=== PATIENT | male | born 1955 | race Caucasian/White ===

== ENCOUNTER → 2016-08-31 | Outpatient (CLI) | payer MEDICARE, OTHER ==
[2016-08-31 11:09] LABS: CHLORIDE,CL 103 mmol/L (98-110); SODIUM,NA 136 mmol/L (136-146)
== END ==
LOC: MW.CHFP 10:25
PROVIDERS: ATTEND Student in an Organized Health Care Education/Training Program
DX: E11.9 Type 2 diabetes mellitus without complications (principal); I10 Essential (primary) hypertension; E78.5 Hyperlipidemia, unspecified; E11.65 Type 2 diabetes mellitus with hyperglycemia; I25.10 Atherosclerotic heart disease of native coronary artery without angina pectoris
CPT/HCPCS: 36415; 80053; 80061; 82044; 83036; 99214

== ENCOUNTER → 2016-09-13 | Outpatient (CLI) | payer MEDICARE | LOC: MW.CHFP 08:00 | PROVIDERS: ATTEND Student in an Organized Health Care Education/Training Program | DX: NODX10 (principal) ==

== ENCOUNTER 2017-01-04 19:17 | Emergency (ER) | payer MEDICARE ==
[2017-01-04] MEDS ORDERED: Sodium Chloride 0.9% 10 ML Syringe FLUSH PRN (19:19)
[2017-01-04] MEDS ORDERED: Sodium Chloride 0.9% 2.5 ML Syringe FLUSH PRN (19:19)
[2017-01-04] MEDS ORDERED: Albuterol/Ipratropium 3.0-0.5 MG/3 ML Neb Soln NEB ONE (19:19)
--- NOTE | 2017-01-04 19:23 | EDM.PDOC ---
ED HPI GENERAL MEDICAL PROBLEM - General Chief Complaint: Respiratory Problem Stated Complaint: TROUBLE BREATHING Time Seen by Provider: 01/04/17 19:18 - History of Present Illness INITIAL COMMENTS - FREE TEXT/NARRATIVE: HISTORY AND PHYSICAL: History of present illness: The patient is a 61-year-old male who follows in our family cracked his clinic with Dr. Gross and has a history of [place] CVA--with no stated deficits--- insulin requiring diabetes hypertension and hypercholesterolemia and presented to the ED with a 10 day history of shortness of breath. The patient said that he has been doctoring [id number] medications for a cold for the last 10 days initially having phlegm the cough and gurgling when he was breathing was worse at night. Use [id number] cough medications and did not see his provider for care. He says the phlegm has now stopped but he still feels the gurgling and it is worse at nighttime. He says the shortness of breath is on and off the last 10 days and when he lays down to go to sleep it seems to be worse. He has no chest pain no abdominal pain no fevers nausea or vomiting. He has no runny nose or sore throat. He has no leg pain or swelling. The patient states he has a history of tobacco use but has quit and was never told that he had COPD or asthma. He also states that he had an inhalation injury when he was younger at work and he doesn't know if his lungs are damaged because of that. Review of systems: As per history of present illness and below otherwise all systems reviewed and negative. Past medical history: As per history of present illness and as reviewed below otherwise noncontributory. Surgical history: As per history of present illness and as reviewed below otherwise noncontributory. Social history: No reported history of drug or alcohol abuse. Family history: As per history of present illness and as reviewed below otherwise noncontributory. Physical exam: Gen.: Well-developed overweight man who is speaking clearly and easily in the ED without breathlessness or hoarseness. He is afebrile and his O2 sat on room air is 93%. The patient is very talkative on my initial evaluation. HEENT: Atraumatic, normocephalic, pupils reactive, negative for conjunctival pallor or scleral icterus, mucous membranes moist, throat clear, neck supple, nontender, trachea midline. Lungs: Clear to auscultation with diminished breath sounds in the bases but no worker breathing or wheezing or sensory muscle use,, breath sounds equal bilaterally, chest nontender. Heart: S1S2, regular, negative for clicks, rubs, or JVD. Abdomen: Soft, nondistended, nontender. The patient is a very large abdomen but there is no rebound guarding or tenderness. Negative for masses or hepatosplenomegaly. Negative for costovertebral tenderness. Pelvis: Stable nontender. Genitourinary: Deferred. Rectal: Deferred. Extremities: Atraumatic, negative for cords or calf pain. Neurovascular unremarkable. There is no pedal edema or leg asymmetry Neuro: Awake, alert, oriented. Cranial nerves II through XII unremarkable. Cerebellum unremarkable. Motor and sensory unremarkable throughout. Exam nonfocal. Skin: There is no overt rashes or lesions and turgor is normal and there is no diaphoresis Diagnostics: EKG chest x-ray CBC CMP BNP INR lactic acid troponin Therapeutics: IV O2 monitor live salgado I discussed with patient the testing care results as well as with family member at bedside and have offered the patient admission to the hospital for further care and evaluation due to his comorbidities and he declines at this time. He would prefer to be discharged and follow-up with his provider in the clinic. He says that he does feel better after the DuoNeb and I will give him an inhaler with a spacer for home. He says he feels like the gurgling that he is experiencing is more in his throat and then he is able to cough or clear it and the inhaler helped. I will give him a course of antibiotics for home and treat this as a bronchitis. I did stress to him reasons to return to the ED and need for follow-up in the clinic. Impression: Dyspnea, bronchitis Definitive disposition and diagnosis as appropriate pending reevaluation and review of above. - Related Data Allergies Allergy/AdvReac Type Severity Reaction Status Date / Time No Known Allergies Allergy Verified 10/30/13 07:47 Home Meds: Home Meds Aspirin 325 mg PO DAILY 10/30/13 [History] Cinnamon Bark [Cinnamon] 500 mg PO DAILY 10/30/13 [History] Ezetimibe [Zetia] 10 mg PO DAILY 10/30/13 [History] Glimepiride [Amaryl] 2 mg PO BID 10/30/13 [History] Insulin Detemir [Levemir Flexpen] 20 unit SQ BID 10/30/13 [History] Metoprolol Tartrate [Lopressor] 50 mg PO 10/30/13 [History] [place]-3/DHA/Epa/Fish Oil [Fish Oil] 500 mg PO 10/30/13 [History] atorvaSTATin [Lipitor] 80 mg PO BEDTIME 10/30/13 [History] metFORMIN [Glucophage] 1,000 mg PO BIDM 10/30/13 [History] Social & Family History - Tobacco Use Years of Tobacco use: 40 - Alcohol Use Days Per Week of Alcohol Use: 0 - Recreational Drug Use Recreational Drug Use: No ED ROS GENERAL - Review of Systems Review Of Systems: ROS reveals no pertinent complaints other than HPI. ED EXAM, GENERAL - Physical Exam Exam: See Below (See dictation) Course - Vital Signs Last Recorded V/S: Last Vital Signs Temp 36.3 C 01/04/17 19:17 Pulse 62 01/04/17 19:17 Resp 22 H 01/04/17 19:17 BP 162/125 H 01/04/17 19:17 Pulse Ox 93 L 01/04/17 19:17 - Orders/Labs/Meds Orders: Active Orders 24 hr Category Date Time Status Blood Glucose Check, Bedside [RC] ONETIME Care 01/04/17 19:18 Active Cardiac Monitoring [RC] . DIRECTED Care 01/04/17 19:18 Active EKG Documentation Completion [RC] STAT Care 01/04/17 19:18 Active Oxygen Therapy, ED [RC] ASDIRECTED Care 01/04/17 19:18 Active Pulse Oximetry [RC] ASDIRECTED Care 01/04/17 19:18 Active RT Aerosol Therapy [RC] ASDIRECTED Care 01/04/17 19:19 Active Chest 2V [CR] Stat Exams 01/04/17 19:19 Taken Sodium Chloride 0.9% [Saline Flush] Med 01/04/17 19:19 Active 10 ml FLUSH ASDIRECTED PRN Sodium Chloride 0.9% [Saline Flush] Med 01/04/17 19:19 Active 2.5 ml FLUSH ASDIRECTED PRN Saline Lock Insert [OM.PC] Stat Oth 01/04/17 19:18 Ordered Medication Orders Sodium Chloride (Saline Flush) 10 ml FLUSH ASDIRECTED PRN PRN Reason: Keep Vein Open Sodium Chloride (Saline Flush) 2.5 ml FLUSH ASDIRECTED PRN PRN Reason: Keep Vein Open Labs: Laboratory Tests 01/04/17 01/04/17 01/04/17 Range/Units 19:30 19:30 19:30 WBC 9.17 (4.0-11.0) K/uL RBC 5.08 (4.50-5.90) M/uL Hgb 14.9 (13.0-17.0) g/dL Hct 43.2 (38.0-50.0) % MCV 85.0 (80.0-98.0) fL MCH 29.3 (27.0-32.0) pg MCHC 34.5 (31.0-37.0) g/dL RDW Std Deviation 42.2 (28.0-62.0) fl RDW Coeff of Funmi 14 (11.0-15.0) % Plt Count 194 (150-400) K/uL MPV 11.10 (7.40-12.00) fL Neut % (Auto) 64.3 (48.0-80.0) % Lymph % (Auto) 21.8 (16.0-40.0) % [place] % (Auto) 11.3 (0.0-15.0) % Eos % (Auto) 2.2 (0.0-7.0) % Baso % (Auto) 0.4 (0.0-1.5) % Neut # (Auto) 5.9 H (1.4-5.7) K/uL Lymph # (Auto) 2.0 (0.6-2.4) K/uL [place] # (Auto) 1.0 H (0.0-0.8) K/uL Eos # (Auto) 0.2 (0.0-0.7) K/uL Baso # (Auto) 0.0 (0.0-0.1) K/uL Nucleated RBC % 0.0 /100WBC Nucleated RBCs # 0 K/uL INR (0.86-1.11) Lactate 2.1 H (0.20-2.00) mmol/L Sodium 137 (136-146) mmol/L Potassium 4.7 (3.5-5.1) mmol/L Chloride 102 (98-110) mmol/L Carbon Dioxide 24 (21-31) mmol/L BUN 14 (6.0-23.0) mg/dL Creatinine 0.9 (0.6-1.5) mg/dL Est Cr Clr Drug Dosing 89.48 mL/min Estimated GFR (MDRD) > 60.0 ml/min Glucose 184 H (60-110) mg/dL Calcium 8.9 (8.8-10.8) mg/dL Total Bilirubin 0.6 (0.1-1.5) mg/dL AST 18 (5-40) IU/L ALT 14 (8-54) IU/L Alkaline Phosphatase 78 (40-150) Troponin I (0.0-0.29) NG/ML B-Natriuretic Peptide (<100) PG/ML Total Protein 6.7 (6.0-8.0) g/dL Albumin 3.5 (3.4-4.8) g/dL Globulin 3.2 (2.0-3.5) g/dL Albumin/Globulin Ratio 1.1 L (1.3-2.8) 01/04/17 01/04/17 01/04/17 Range/Units 19:30 19:30 20:15 WBC (4.0-11.0) K/uL RBC (4.50-5.90) M/uL Hgb (13.0-17.0) g/dL Hct (38.0-50.0) % MCV (80.0-98.0) fL MCH (27.0-32.0) pg MCHC (31.0-37.0) g/dL RDW Std Deviation (28.0-62.0) fl RDW Coeff of Funmi (11.0-15.0) % Plt Count (150-400) K/uL MPV (7.40-12.00) fL Neut % (Auto) (48.0-80.0) % Lymph % (Auto) (16.0-40.0) % [place] % (Auto) (0.0-15.0) % Eos % (Auto) (0.0-7.0) % Baso % (Auto) (0.0-1.5) % Neut # (Auto) (1.4-5.7) K/uL Lymph # (Auto) (0.6-2.4) K/uL [place] # (Auto) (0.0-0.8) K/uL Eos # (Auto) (0.0-0.7) K/uL Baso # (Auto) (0.0-0.1) K/uL Nucleated RBC % /100WBC Nucleated RBCs # K/uL INR 0.98 (0.86-1.11) Lactate (0.20-2.00) mmol/L Sodium (136-146) mmol/L Potassium (3.5-5.1) mmol/L Chloride (98-110) mmol/L Carbon Dioxide (21-31) mmol/L BUN (6.0-23.0) mg/dL Creatinine (0.6-1.5) mg/dL Est Cr Clr Drug Dosing mL/min Estimated GFR (MDRD) ml/min Glucose (60-110) mg/dL Calcium (8.8-10.8) mg/dL Total Bilirubin (0.1-1.5) mg/dL AST (5-40) IU/L ALT (8-54) IU/L Alkaline Phosphatase (40-150) Troponin I < 0.10 (0.0-0.29) NG/ML B-Natriuretic Peptide 263 H (<100) PG/ML Total Protein (6.0-8.0) g/dL Albumin (3.4-4.8) g/dL Globulin (2.0-3.5) g/dL Albumin/Globulin Ratio (1.3-2.8) Meds: Medications Generic Name Dose Route Start Last Admin Trade Name Freq PRN Reason Stop Dose Admin Sodium Chloride 10 ml 01/04/17 19:19 Saline Flush FLUSH ASDIRECTED PRN Keep Vein Open Sodium Chloride 2.5 ml 01/04/17 19:19 Saline Flush FLUSH ASDIRECTED PRN Keep Vein Open Discontinued Medications Generic Name Dose Route Start Last Admin Trade Name Freq PRN Reason Stop Dose Admin Albuterol/Ipratropium 3 ml 01/04/17 19:19 01/04/17 19:30 Duoneb 3.0-0.5 Mg/3 Ml NEB 01/04/17 19:20 3 ml ONETIME ONE Administration Departure - Departure Time of Disposition: 20:34 Disposition: Home, Self-Care 01 Condition: Good Clinical Impression: Bronchitis Dyspnea Qualifiers: Dyspnea type: unspecified Qualified Code(s): R06.00 - Dyspnea, unspecified - Discharge Information Forms: ED Department Discharge Additional Instructions: The following information is given to patients seen in the emergency department who are being discharged to home. This information is to outline your options for follow-up care. We provide all patients seen in our emergency department with a follow-up referral. The need for follow-up, as well as the timing and circumstances, are variable depending upon the specifics of your emergency department visit. If you don't have a primary care physician on staff, we will provide you with a referral. We always advise you to contact your personal physician following an emergency department visit to inform them of the circumstance of the visit and for follow-up with them and/or the need for any referrals to a consulting specialist. The emergency department will also refer you to a specialist when appropriate. This referral assures that you have the opportunity for followup care with a specialist. All of these measure are taken in an effort to provide you with optimal care, which includes your followup. Under all circumstances we always encourage you to contact your private physician who remains a resource for coordinating your care. When calling for followup care, please make the office aware that this follow-up is from your recent emergency room visit. If for any reason you are refused follow-up, please contact the [facility] emergency department at and ask to speak to the emergency department charge nurse. [facility] Primary care- [place] [address] Please use medications as prescribed and rest. Please call and follow-up with your provider in our clinic, Dr. Gross, in the next few days. Return to ER as needed and as we discussed. - My Orders Last 24 Hours: My Active Orders 01/04/17 19:18 Blood Glucose Check, Bedside [RC] ONETIME Cardiac Monitoring [RC] . DIRECTED EKG Documentation Completion [RC] STAT Oxygen Therapy, ED [RC] ASDIRECTED Pulse Oximetry [RC] ASDIRECTED Saline Lock Insert [OM.PC] Stat 01/04/17 19:19 RT Aerosol Therapy [RC] ASDIRECTED Chest 2V [CR] Stat Sodium Chloride 0.9% [Saline Flush] 10 ml FLUSH ASDIRECTED PRN Sodium Chloride 0.9% [Saline Flush] 2.5 ml FLUSH ASDIRECTED PRN - Assessment/Plan Last 24 Hours: My Active Orders 01/04/17 19:18 Blood Glucose Check, Bedside [RC] ONETIME Cardiac Monitoring [RC] . DIRECTED EKG Documentation Completion [RC] STAT Oxygen Therapy, ED [RC] ASDIRECTED Pulse Oximetry [RC] ASDIRECTED Saline Lock Insert [OM.PC] Stat 01/04/17 19:19 RT Aerosol Therapy [RC] ASDIRECTED Chest 2V [CR] Stat Sodium Chloride 0.9% [Saline Flush] 10 ml FLUSH ASDIRECTED PRN Sodium Chloride 0.9% [Saline Flush] 2.5 ml FLUSH ASDIRECTED PRN
[2017-01-04 20:05] LABS: CHLORIDE,CL 102 mmol/L (98-110); SODIUM,NA 137 mmol/L (136-146)
[2017-01-04 21:17] VITALS: BP 176/89
--- NOTE | 2017-01-05 18:05 | CR ---
EXAM DATE: 01/04/17 PATIENT'S AGE: 61 Patient: DEV CAZARES Facility: [place], [place] Site . Site : 1955 Study: XRay Chest [id number] 8:05:18 PM Ordering Physician: Darrell Morrison Final Report: INDICATION: Chest pain and shortness of breath. TECHNIQUE: Chest radiograph 2 views COMPARISON: 10/30/2013. FINDINGS: Cardiovascular and mediastinum: The heart silhouette is normal in size and morphology. The mediastinum is normal in appearance. Lungs and pleural spaces: Both lungs are unremarkable in appearance. No sign of pleural effusion seen. No pneumothorax is identified. Bones and soft tissues: No significant findings. IMPRESSION: 1. No acute cardiopulmonary disease is seen. Dictated by Damien Grant MD @ 01/04/2017 8:19:02 PM Dictated by: Damien Grant MD @ 01/04/2017 20:19:10 (Electronic Signature) Report Signed by Proxy. [facility]
== END 2017-01-04 20:55 | disposition home or self-care (01) ==
LOC: MW.ED 19:17
DX: J40 Bronchitis, not specified as acute or chronic (principal); I10 Essential (primary) hypertension; E11.9 Type 2 diabetes mellitus without complications; I25.2 Old myocardial infarction; E78.00 Pure hypercholesterolemia, unspecified; Z86.73 Personal history of transient ischemic attack (TIA), and cerebral infarction without residual deficits; Z79.82 Long term (current) use of aspirin; Z79.4 Long term (current) use of insulin; Z79.899 Other long term (current) drug therapy
CPT/HCPCS: 36415; 71020; 71020-26; 80053; 82962; 83605; 83880; 84484; 85025; 85610; 93005; 94664; 99284; 99285-25

== ENCOUNTER 2017-01-19 11:41 | Emergency (ER) | payer MEDICARE ==
[2017-01-19] MEDS ORDERED: Sodium Chloride 0.9% 2.5 ML Syringe FLUSH PRN (11:49)
[2017-01-19] MEDS ORDERED: Sodium Chloride 0.9% 10 ML Syringe FLUSH PRN (11:49)
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
--- NOTE | 2017-01-19 12:05 | CT ---
CT brain scan/clinical history stroke code Multiple computed tomographic sections of the brain were obtained without contrast. Findings: There are multiple areas of low attenuation consistent with edema in both hemispheres incl uding the left temporal lobe and right mid parietal zone right frontoparietal zone and more dramatic ally in the posterior parietal zone on the right. The latter is most typical for cytotoxic edema and I'm worried that this may represent metastatic disease. There is also a tiny focus of high density in the posterior superior left parietal zone that could represent petechial blood. Impression: Multiple foci of edema in both hemispheres, suspect cytotoxic edema. Metastatic disease is a strong consideration. Consider MRI
[2017-01-19] MEDS ORDERED: Dexamethasone 10 MG/ML SDV IVPUSH ONE (12:38)
[2017-01-19] MEDS ORDERED: Sodium Chloride 0.9% 1,000 ML IV ONE (12:56)
[2017-01-19 13:54] LABS: CHLORIDE,CL 100 mmol/L (98-110); SODIUM,NA 139 mmol/L (136-146)
[2017-01-19] MEDS ORDERED: Gadobenate Dimeglumine 529 MG/ML 20 ML SDV IVPUSH STA (14:04)
--- NOTE | 2017-01-19 14:06 | MR ---
MRI brain scan Multiple imaging sequences of the brain were constructed in axial sagittal and coronal plane coating postgadolinium-enhanced images. Findings multiple bilateral lesions are present in both hemispheres with surrounding vasogenic edema consistent with metastatic disease. Largest of these is in the posterior right parietal zone. Post contrast enhanced images show diffuse ringlike enhancing lesions including one in the left body of t he mauro one in the right temporal lobe one in the left temporal lobe one in the temporoparietal junc tion on the right one at the tip posteriorly of the insular cortex on the left and the largest previ ously described in the posterior parietal zone as well as lesions in the anterior right parietal zon e and posterior left parietal zone. T1-weighted images without contrast show that none of these lesi ons is hemorrhagic. Impression: Diffuse cerebral metastatic disease. (The review of chest radiograph on this patient soumya ed 01/04/2017 reveals a primary lung carcinoma in the central suprahilar region of the right lung)
[2017-01-19 17:23] VITALS: BP 164/98
--- NOTE | 2017-01-22 16:45 | XA ---
Exam Date: 01/19/17 Patient's Age: 61 HEIGHT: 64.0 in. WEIGHT: 143.0 lbs. INDICATIONS: , hypothyroid, postmenopausal FRACTURES: TREATMENTS: Levothyroxine, vitamin D3 ASSESSMENT: The BMD measured at AP Spine L1-L4 is 0;850 g/cm2 with a T-score of -2.8. This patient is considered osteoporotic according to World Health Organization (WHO) criteria. Fracture risk is high. Pharmacological treatment, if not already [id number], should be started. A followup bone density test is recommended in one year to monitor response to therapy. The BMD measured at Femur Troch Mean is 0.655 g/cm2 with a T-score of -1.8 is considered moderately low. Fracture risk is [id number]. Treatment is advised if there are other risk factors. RESULTS: Site Region Age Classification T-Score BMD AP Spine L1-L4 56.4 Osteoporosis -2.8 0.850 g/cm2 Dual Femur Neck Mean 56.4 Osteopenia -2.4 0.704 g/cm2 Dual Femur Troch Mean 56.4 N/A -1.8 0.644 g/cm2 Dual Femur Total Mean 56.4 Osteopenia -2.0 0.754 g/cm2 World Health Organization - Criteria for post-menopausal, women: Normal: T-Score at or above -1 SD Osteopenia: T-Score between -1 and -2.5 SD Osteoporosis: T-Score at or below -2.5 SD RECOMMENDATION: Pharmacologic treatment recommendations & Initiate pharmacologic treatment: - In those with hip or vertebral (clinical or asymptomatic) fractures - In those with T -scores <-2.5 at the femoral neck, total hip, or lumbar spine by DXA - In postmenopausal women and men age 50 and older with low bone mass (T-score between -1.0 and -2.5, osteopenia) at the femoral neck, total hip, or lumbar spine by DXA and a 10-year hip fracture probability >3 % or a 10-year major osteoporosis-related fracture probability >20% based on the [place]-adapted WHO absolute fracture risk model (Fracture Risk Algorithm (FRAX); www. NOF.org and www.shef.ac.uk/FRAX) FOLLOW UP: People with diagnosed cases of osteoporosis or at high risk for fracture should have regular bone mineral density tests. For patients eligible for Medicare, routine testing is allowed once every 2 years. The testing frequency can be increased to 1 year for patients who have rapidly progressing disease, those who are reviewing or discontinuing medial therapy to restore bone mass, or have additional risk factors. People with diagnosed cases of osteoporosis or osteopenia should be regularly tested for bone mineral density. For patient eligible for Medicare, routine testing is allowed once every 2 years. The testing frequency can be increased to 1 year for patients who have rapidly progressing disease, or for those who are receiving medial therapy to restore bone mass. [facility] -- [facility] [phone] - FAX: [phone] MAGY
== END 2017-01-19 17:39 ==
LOC: MW.ED 11:41
DX: C71.9 Malignant neoplasm of brain, unspecified (principal); R91.8 Other nonspecific abnormal finding of lung field; I10 Essential (primary) hypertension; I25.2 Old myocardial infarction; E11.9 Type 2 diabetes mellitus without complications; Z79.4 Long term (current) use of insulin; Z79.899 Other long term (current) drug therapy; E78.00 Pure hypercholesterolemia, unspecified; Z86.73 Personal history of transient ischemic attack (TIA), and cerebral infarction without residual deficits; Z79.82 Long term (current) use of aspirin
CPT/HCPCS: 36415; 70450; 70546; 70553; 80053; 82962; 84443; 84484; 85025; 85610; 85730; 93005; 96361; 96365; 96375; 99285; A9577; J1100; J1953; J7040; J7060; 99284

== ENCOUNTER 2017-02-05 06:23 | Day surgery (SDC) | payer MEDICARE ==
[~2017-02-05 06:23] MED LIST: Lactated Ringers 1,000 ML IV SCH; ceFAZolin 2 GM in Premix Bag 1 BAG IV SCH
[2017-02-05] MEDS ORDERED: Bupivacaine 0.5% 10 ML SDV ONE (07:17)
[2017-02-05] MEDS ORDERED: Lidocaine 1% 20 ML MDV ONE (07:17)
[2017-02-05] MEDS ORDERED: Heparin Sodium 100 Units/ML 3 ML Syringe ONE (07:17)
[2017-02-05] MEDS ORDERED: fentaNYL 100 MCG/2 ML SDV ONE (07:26)
[2017-02-05] MEDS ORDERED: Propofol 200 MG/20 ML SDV ONE (07:26)
[2017-02-05] MEDS ORDERED: Lidocaine 2% 5 ML SDV ONE (07:26)
[2017-02-05] MEDS ORDERED: Midazolam 1 MG/ML 2 ML SDV ONE (07:26)
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
[2017-02-05] MEDS ORDERED: Sodium Chloride 0.9% 20 ML ONE (08:08)
[2017-02-05] MEDS ORDERED: ceFAZolin 1 GM Vial ONE (08:08)
[2017-02-05] MEDS ORDERED: Acetaminophen/HYDROcodone 325-5 MG Tab PO PRN (09:38)
[2017-02-05] MEDS ORDERED: Ondansetron 4 MG/2 ML SDV IVPUSH PRN (09:38)
--- NOTE | 2017-02-05 09:42 | PCM.OPNOTE ---
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
[2017-02-05] MEDS ORDERED: Lactated Ringers 1,000 ML IV SCH (09:45)
[2017-02-05 11:16] VITALS: BP 143/78
--- NOTE | 2017-02-05 16:36 | OR ---
SURGEON: Ramiro Cochran M.D. DATE OF PROCEDURE: 02/05/2017 OPERATION PERFORMED: Placement of a Bard PowerPort right subclavian vein. ORNAMENTER: VLADIMIR Blake student. ANESTHESIA: Local MAC. ASA CLASSIFICATION: IV. PREOPERATIVE DIAGNOSIS: Metastatic small cell carcinoma with the need for long-term IV access for chemotherapy. POSTOPERATIVE DIAGNOSIS: Metastatic small cell carcinoma with the need for long-term IV access for chemotherapy. ESTIMATED BLOOD LOSS: 5 mL. INTRAOPERATIVE FLUID REPLACEMENT: 600 mL of crystalloid. DESCRIPTION OF PROCEDURE: The patient was taken to the operating room and placed on the operating table in the supine position. Time-out was called for appropriate identification of the patient and procedure. It had been elected to proceed with placement of a catheter on the right side. The initial attempt was to be a cephalic vein approach. The skin was prepped with DuraPrep solution. Sterile drapes were applied. The skin incision was marked out in the right deltopectoral groove. The skin was then infiltrated with 0.5% Marcaine solution and 1% Xylocaine solution. A skin incision was then made using electrocautery, deepened to the deltopectoral groove. We were unable to identify a usable cephalic vein. Therefore, it was determined to proceed with a subclavian vein approach on the right side using Seldinger technique. The skin at the junction of the lateral 1/3rd and medial 2/3 of the clavicle was infiltrated again with 1% Xylocaine and 0.5% Marcaine solution. The subclavian vein was cannulated without difficulty. The guidewire was passed into the subclavian vein. Appropriate position confirmed with fluoroscopy. There was no aspiration of air. Once that was accomplished, a small skin incision was made at the guidewire site and the peel- away sheath and introducer were passed over the guidewire positioning this within the left subclavian vein. Subsequently, the heparin flushed catheter was passed through the peel-away sheath and again position confirmed with the use of fluoroscopy. The peel-away sheath was removed. The catheter was noted to be at the junction of the superior vena cava and right atrium. With that accomplished, appropriate site on the chest wall was identified for placement of the port. Again, the skin was infiltrated with 1% Xylocaine and 0.5% Marcaine solution. The skin incision was made and again using electrocautery deepened into the subcutaneous tissue. This gentleman was quite heavy and dissection was not carried all the way to the pectoralis major fascia. With the pocket created, the tunneling device was passed from the subclavian puncture site into the port site. The catheter connected to the tunneler and passed into the subcutaneous tunnel, delivering it into the port site. The heparin filled port was brought to the operating table and the port and catheter were now connected with care taken to keep the catheter occluded to avoid an air embolus. Once the catheter and port were assembled, the catheter was aspirated. It does aspirate blood and flushes easily. The port was then secured to the subcutaneous tissue with interrupted 2-0 silk sutures. The wound was inspected for hemostasis. No bleeding was noted. The chest wall incision and deltopectoral incisions were closed in two layers approximating the subcutaneous tissue with 3-0 Polysorb and the skin with subcuticular 4-0 Monocryl. The subclavian puncture site was closed with a 4-0 Monocryl. All incisions were Steri-Stripped and dressed with sterile Tegaderm pads. Sponge, needle, and instrument counts were all correct. The patient tolerated the procedure well and was taken to recovery room in stable condition. Chest x-ray has been ordered in recovery room. KARIE RIVAS /[id number]
--- NOTE | 2017-02-06 15:54 | CR ---
EXAMINATION: Portable chest radiograph. HISTORY: Port placement. FINDINGS: The trachea is midline. The cardiomediastinal silhouette is within normal limits. No pulmonary infilt rates, effusions or pneumothorax. There is a right-sided portacatheter noted with tip in the distal S VC. Osseous structures appear unremarkable. IMPRESSION: No acute cardiopulmonary process.
--- NOTE | 2017-02-11 09:47 | PCM.SN ---
- Free Text/Narrative Note: Late entry--Post-op CXR reveals no pneumothorax.
== END 2017-02-05 10:37 | disposition home or self-care (01) ==
LOC: MW.SDS 06:23
PROVIDERS: ATTEND Surgery
DX: C34.90 Malignant neoplasm of unspecified part of unspecified bronchus or lung (principal); C79.31 Secondary malignant neoplasm of brain; I25.10 Atherosclerotic heart disease of native coronary artery without angina pectoris; E11.9 Type 2 diabetes mellitus without complications; I10 Essential (primary) hypertension; I25.2 Old myocardial infarction; E78.00 Pure hypercholesterolemia, unspecified; Z86.73 Personal history of transient ischemic attack (TIA), and cerebral infarction without residual deficits; Z87.891 Personal history of nicotine dependence; Z88.8 Allergy status to other drugs, medicaments and biological substances; Z79.02 Long term (current) use of antithrombotics/antiplatelets; Z79.82 Long term (current) use of aspirin; Z79.4 Long term (current) use of insulin; Z79.899 Other long term (current) drug therapy; Z95.5 Presence of coronary angioplasty implant and graft; Z90.49 Acquired absence of other specified parts of digestive tract; Z89.021 Acquired absence of right finger(s); Z89.422 Acquired absence of other left toe(s); Z98.890 Other specified postprocedural states
CPT/HCPCS: 36561; 71010; 76000; 82962; C1788; J0690; J1642; J2250; J3010; J7120; 00532; J2704

== ENCOUNTER 2017-02-10 19:44 | Emergency (ER) | payer MEDICARE ==
--- NOTE | 2017-02-10 20:01 | EDM.PDOC ---
ED HPI GENERAL MEDICAL PROBLEM - General Chief Complaint: Genitourinary Problem Stated Complaint: BLOOD IN URINE Time Seen by Provider: 02/10/17 19:59 Source of Information: Reports: Patient History Limitations: Reports: No Limitations - History of Present Illness INITIAL COMMENTS - FREE TEXT/NARRATIVE: HISTORY AND PHYSICAL: History of present illness: Patient is a 61-year-old male that presents to the emergency room today with complaints of hematuria since 4 PM this afternoon. Patient was seen on 01/19/17 in the emergency room and diagnosed with a cancerous lung mass which has metastasized to the brain. At that time the patient was transferred to [place] to connect with an oncologist. Patient reports that he has his first chemotherapy treatment on Sunday. Upon discussing patient's recent diagnosis of cancer, patient repeatedly expresses that he only wants the blood in his urine evaluated today. Patient has a past medical history of CAD, hypertension, type 2 diabetes, cerebral infarct, lung cancer with metastases to the brain. Review of systems: As per history of present illness and below otherwise all systems reviewed and negative. Past medical history: As per history of present illness and as reviewed below otherwise noncontributory. Surgical history: As per history of present illness and as reviewed below otherwise noncontributory. Social history: No reported history of drug or alcohol abuse. Family history: As per history of present illness and as reviewed below otherwise noncontributory. Physical exam: Gen.: Patient appears dyspneic which patient verbalizes is his baseline. HEENT: Atraumatic, normocephalic, pupils reactive, negative for conjunctival pallor or scleral icterus, mucous membranes moist, throat clear, neck supple, nontender, trachea midline. Lungs: Diminished upon auscultation throughout, chest nontender. Dyspnic ( patient's baseline) Heart: S1S2, regular, negative for clicks, rubs, or JVD. Abdomen: Soft, obese, nondistended, nontender. Negative for masses or hepatosplenomegaly. Negative for costovertebral tenderness. Pelvis: Stable nontender. Genitourinary: Deferred. Rectal: Deferred. Skin: Flushes face Extremities: Atraumatic, negative for cords or calf pain. Neurovascular unremarkable. Neuro: Awake, alert, oriented. Cranial nerves II through XII unremarkable. Cerebellum unremarkable. Motor and sensory unremarkable throughout. Exam nonfocal. Upon assessing patient - patient expresses that he only wants his hematuria evaluated today and is agreeable to a UA/UC. Declines any further diagnostics. Diagnostics: UA, urine culture Therapeutics: Reassurance Impression: Medical Screening exam, hx of metastatic lung cancer Plan: 1. Please keep your appointment with the oncologist that is on 02/13/17. 2. Return to the ED as needed as discussed Definitive disposition and diagnosis as appropriate pending reevaluation and review of above. Onset: Today - Related Data Allergies Allergy/AdvReac Type Severity Reaction Status Date / Time No Known Allergies Allergy Verified 02/10/17 19:51 Home Meds: Home Meds Aspirin 81 mg PO DAILY 01/04/17 [History] Clopidogrel [Plavix] 75 mg PO DAILY 01/04/17 [History] Insulin Detemir [Levemir] 1 injection SQ BID 01/04/17 [History] Insulin Lispro [Humalog Kwikpen] 1 injection SQ ASDIRECTED 01/04/17 [History] Metoprolol Succinate 50 mg PO BID 01/04/17 [History] atorvaSTATin [Lipitor] 80 mg PO DAILY 01/04/17 [History] Furosemide 20 mg PO DAILY 01/30/17 [History] Ipratropium/Albuterol Sulfate [IJD: DuoNeb 3.0-0.5 MG/3 ML] 1 dose NEB ASDIRECTED PRN 01/30/17 [History] Lisinopril 10 mg PO DAILY 01/30/17 [History] Nystatin 5 ml GARGLE ASDIRECTED 01/30/17 [History] Omeprazole 20 mg PO DAILY 01/30/17 [History] guaiFENesin [Mucinex] 2 tab PO ASDIRECTED PRN 01/30/17 [History] levETIRAcetam [Levetiracetam] 750 mg PO BID 01/30/17 [History] traMADol HCl [Tramadol HCl] 50 mg PO ASDIRECTED PRN 01/30/17 [History] Albuterol [Proventil Neb Soln] 1 dose INH QID 01/31/17 [History] Benzonatate [Tessalon Perles] 100 mg PO TID 01/31/17 [History] Carvedilol 30,125 mg PO BIDMEALS 01/31/17 [History] Dexamethasone 4 mg PO Q6H 01/31/17 [History] Docusate Sodium/Sennosides [Senna Plus] 1 tab PO BID PRN 01/31/17 [History] Polyethylene Glycol 3350 [MiraLAX] 17 gm PO DAILY 01/31/17 [History] Past Medical History HEENT History: Reports: Sinusitis Other HEENT History: wears glasses, has upper denture Cardiovascular History: Reports: Arrhythmia, High Cholesterol, Hypertension, PR , SOB on Exertion, Other (See Below) Other Cardiovascular History: states the lung cancer is "wrapped around his heart" causing it to function at "40%" Respiratory History: Reports: Bronchitis, Recurrent, SOB, Other (See Below) Other Respiratory History: current lung cancer with brain mets Gastrointestinal History: Reports: None Genitourinary History: Reports: None Musculoskeletal History: Reports: Fracture, Neck Pain, Chronic Other Musculoskeletal History: hx of fx left foot multiple times Neurological History: Reports: CVA, Head Trauma, Other (See Below) Other Neuro History: CVA in 2013, no residual, currently has tremors left arm, hx of having his head "split open" (? soft tissue repair?) Psychiatric History: Reports: None Endocrine/Metabolic History: Reports: Diabetes, Type II, Obesity/BMI 30+ Hematologic History: Reports: Anticoagulation Therapy Immunologic History: Reports: None Oncologic (Cancer) History: Reports: Brain, Lung Dermatologic History: Reports: None - Infectious Disease History Infectious Disease History: Reports: Chicken Pox, Measles, Mumps - Past Surgical History Head Surgeries/Procedures: Reports: None HEENT Surgical History: Reports: None Cardiovascular Surgical History: Reports: Coronary Artery Stent Other Cardiovascular Surgeries/Procedures: one stent 10 years ago, no chest pain since Respiratory Surgical History: Reports: Lung Biopsies GI Surgical History: Reports: Appendectomy Male Surgical History: Reports: None Neurological Surgical History: Reports: None Musculoskeletal Surgical History: Reports: Amputation, Other (See Below) Other Musculoskeletal Surgeries/Procedures:: amputation of right middle finger, amputation of left small toe, excision of mass right axilla Social & Family History - Family History Family Medical History: Noncontributory - Tobacco Use Smoking Status *Q: Former Smoker Years of Tobacco use: 30 Packs/Tins Daily: 4 Used Tobacco, but Quit: Yes Month Tobacco Last Used: 3 years ago - Caffeine Use Caffeine Use: Reports: Coffee Caffeine Use Comment: 2-3cups/day - Alcohol Use Days Per Week of Alcohol Use: 0 - Recreational Drug Use Recreational Drug Use: No Drug Use in Last 12 Months: No ED ROS GENERAL - Review of Systems Review Of Systems: ROS reveals no pertinent complaints other than HPI. ED EXAM, RENAL/ - Physical Exam Exam: See Below (See dictation) Course - Vital Signs Last Recorded V/S: Last Vital Signs Temp 36.4 C 02/10/17 19:46 Pulse 72 02/10/17 19:46 Resp 22 H 02/10/17 19:46 BP 161/135 H 02/10/17 19:46 Pulse Ox 93 L 02/10/17 19:46 - Orders/Labs/Meds Orders: Active Orders 24 hr Category Date Time Status CULTURE URINE [RM] Stat Lab 02/10/17 20:26 Received Labs: Laboratory Tests 02/10/17 Range/Units 20:26 Urine Color YELLOW Urine Appearance CLEAR Urine pH 7.0 (5.0-8.0) Ur Specific [place] 1.010 (1.001-1.035) Urine Protein NEGATIVE (NEGATIVE) mg/dL Urine Glucose (UA) 250 H (NEGATIVE) mg/dL Urine Ketones NEGATIVE (NEGATIVE) mg/dL Urine Occult Blood NEGATIVE (NEGATIVE) Urine Nitrite NEGATIVE (NEGATIVE) Urine Bilirubin NEGATIVE (NEGATIVE) Urine Urobilinogen 0.2 (<2.0) EU/dL Ur Leukocyte Esterase NEGATIVE (NEGATIVE) Urine RBC NONE SEEN (0-2/HPF) Urine WBC 0-2 (0-5/HPF) Ur Epithelial Cells NOT SEEN (NONE-FEW) Urine Bacteria RARE (NEGATIVE) Departure - Departure Time of Disposition: 21:05 Disposition: Home, Self-Care 01 Clinical Impression: Encounter for medical screening examination - Discharge Information Forms: ED Department Discharge Additional Instructions: The following information is given to patients seen in the emergency department who are being discharged to home. This information is to outline your options for follow-up care. We provide all patients seen in our emergency department with a follow-up referral. The need for follow-up, as well as the timing and circumstances, are variable depending upon the specifics of your emergency department visit. If you don't have a primary care physician on staff, we will provide you with a referral. We always advise you to contact your personal physician following an emergency department visit to inform them of the circumstance of the visit and for follow-up with them and/or the need for any referrals to a consulting specialist. The emergency department will also refer you to a specialist when appropriate. This referral assures that you have the opportunity for followup care with a specialist. All of these measure are taken in an effort to provide you with optimal care, which includes your followup. Under all circumstances we always encourage you to contact your private physician who remains a resource for coordinating your care. When calling for followup care, please make the office aware that this follow-up is from your recent emergency room visit. If for any reason you are refused follow-up, please contact the [facility] emergency department at and asked to speak to the emergency department charge nurse. [facility] [address] [place] [id number] [facility] [address] [place] [address] 1. Please keep your appointment with the oncologist that is on 02/13/17. 2. Return to the ED as needed as discussed - My Orders Last 24 Hours: My Active Orders 02/10/17 20:26 CULTURE URINE [RM] Stat - Assessment/Plan Last 24 Hours: My Active Orders 02/10/17 20:26 CULTURE URINE [RM] Stat
[2017-02-10 21:19] VITALS: BP 157/112
== END 2017-02-10 21:17 | disposition home or self-care (01) ==
LOC: MW.ED 19:44
DX: Z13.9 Encounter for screening, unspecified (principal); I25.10 Atherosclerotic heart disease of native coronary artery without angina pectoris; I10 Essential (primary) hypertension; E11.9 Type 2 diabetes mellitus without complications; C34.90 Malignant neoplasm of unspecified part of unspecified bronchus or lung; C79.31 Secondary malignant neoplasm of brain; E78.00 Pure hypercholesterolemia, unspecified; I25.2 Old myocardial infarction; Z86.73 Personal history of transient ischemic attack (TIA), and cerebral infarction without residual deficits; E66.9 Obesity, unspecified; Z90.49 Acquired absence of other specified parts of digestive tract; Z79.82 Long term (current) use of aspirin; Z79.4 Long term (current) use of insulin; Z79.899 Other long term (current) drug therapy; Z87.891 Personal history of nicotine dependence; Z68.39 Body mass index [BMI] 39.0-39.9, adult
CPT/HCPCS: 81001; 87086; 99283

== ENCOUNTER 2017-02-27 19:06 | Emergency (ER) | payer MEDICARE ==
[2017-02-27] MEDS ORDERED: Sodium Chloride 0.9% 1,000 ML IV ONE (19:21)
--- NOTE | 2017-02-27 19:31 | EDM.PDOC ---
ED HPI GENERAL MEDICAL PROBLEM - General Chief Complaint: Respiratory Problem Stated Complaint: SHORTNESS OF BREATH Time Seen by Provider: 02/27/17 19:25 - History of Present Illness INITIAL COMMENTS - FREE TEXT/NARRATIVE: HISTORY AND PHYSICAL: History of present illness: Patient is a 61-year-old white male with history of metastatic lung cancer presents with concern of severe shortness of breath and hypoxemia on arrival here patient in severe distress with a unable to tolerate oxygen per mask and with high flow O2 saturation in the low 80s respiratory rate is 30-40 is able to speak in complete sentences I decided a lengthy discussion with patient and family regarding other measures at this point a heart agreement with mechanical ventilation understanding the limitations. There is no reported fever chills he has had some intermittent nausea and vomiting. Review of systems: As per history of present illness and below otherwise all systems reviewed and negative. Past medical history: As per history of present illness and as reviewed below otherwise noncontributory. Surgical history: As per history of present illness and as reviewed below otherwise noncontributory. Social history: No reported history of drug or alcohol abuse. Family history: As per history of present illness and as reviewed below otherwise noncontributory. Physical exam: HEENT: Atraumatic, normocephalic, pupils reactive, negative for conjunctival pallor or scleral icterus, mucous membranes moist, throat clear, neck supple, nontender, trachea midline. Lungs: Coarse with scattered rhonchi throughout but sounds are diminished, breath sounds equal bilaterally, chest nontender. Heart: S1S2, regular, negative for clicks, rubs, or JVD. Abdomen: Soft, nondistended, nontender. Negative for masses or hepatosplenomegaly. Negative for costovertebral tenderness. Pelvis: Stable nontender. Genitourinary: Deferred. Rectal: Deferred. Extremities: Atraumatic, negative for cords or calf pain. Neurovascular unremarkable. Neuro: Awake, follows commands answers appropriately limited to grossly nonfocal exam Diagnostics: CBC CMP PT/INR troponin ABG chest x-ray EKG Therapeutics: Patient was intubated via rapid sequence intubation with an 80 ET tube colorimetric change was identified post donation chest x-ray pending Impression: #1 history of metastatic lung cancer #2 respiratory failure Definitive disposition and diagnosis as appropriate pending reevaluation and review of above. - Related Data Allergies Allergy/AdvReac Type Severity Reaction Status Date / Time No Known Allergies Allergy Verified 02/10/17 19:51 Home Meds: Home Meds Aspirin 81 mg PO DAILY 01/04/17 [History] Clopidogrel [Plavix] 75 mg PO DAILY 01/04/17 [History] Insulin Detemir [Levemir] 1 injection SQ BID 01/04/17 [History] Insulin Lispro [Humalog Kwikpen] 1 injection SQ ASDIRECTED 01/04/17 [History] Metoprolol Succinate 50 mg PO BID 01/04/17 [History] atorvaSTATin [Lipitor] 80 mg PO DAILY 01/04/17 [History] Furosemide 20 mg PO DAILY 01/30/17 [History] Ipratropium/Albuterol Sulfate [IJD: DuoNeb 3.0-0.5 MG/3 ML] 1 dose NEB ASDIRECTED PRN 01/30/17 [History] Lisinopril 10 mg PO DAILY 01/30/17 [History] Nystatin 5 ml GARGLE ASDIRECTED 01/30/17 [History] Omeprazole 20 mg PO DAILY 01/30/17 [History] guaiFENesin [Mucinex] 2 tab PO ASDIRECTED PRN 01/30/17 [History] levETIRAcetam [Levetiracetam] 750 mg PO BID 01/30/17 [History] traMADol HCl [Tramadol HCl] 50 mg PO ASDIRECTED PRN 01/30/17 [History] Albuterol [Proventil Neb Soln] 1 dose INH QID 01/31/17 [History] Benzonatate [Tessalon Perles] 100 mg PO TID 01/31/17 [History] Carvedilol 30,125 mg PO BIDMEALS 01/31/17 [History] Dexamethasone 4 mg PO Q6H 01/31/17 [History] Docusate Sodium/Sennosides [Senna Plus] 1 tab PO BID PRN 01/31/17 [History] Polyethylene Glycol 3350 [MiraLAX] 17 gm PO DAILY 01/31/17 [History] Past Medical History HEENT History: Reports: Sinusitis Other HEENT History: wears glasses, has upper denture Cardiovascular History: Reports: Arrhythmia, High Cholesterol, Hypertension, [place] , SOB on Exertion, Other (See Below) Other Cardiovascular History: states the lung cancer is "wrapped around his heart" causing it to function at "40%" Respiratory History: Reports: Bronchitis, Recurrent, SOB, Other (See Below) Other Respiratory History: current lung cancer with brain mets Gastrointestinal History: Reports: None Genitourinary History: Reports: None Musculoskeletal History: Reports: Fracture, Neck Pain, Chronic Other Musculoskeletal History: hx of fx left foot multiple times Neurological History: Reports: CVA, Head Trauma, Other (See Below) Other Neuro History: CVA in 2014, no residual, currently has tremors left arm, hx of having his head "split open" (? soft tissue repair?) Psychiatric History: Reports: None Endocrine/Metabolic History: Reports: Diabetes, Type II, Obesity/BMI 30+ Hematologic History: Reports: Anticoagulation Therapy Immunologic History: Reports: None Oncologic (Cancer) History: Reports: Brain, Lung Dermatologic History: Reports: None - Infectious Disease History Infectious Disease History: Reports: Chicken Pox, Measles, Mumps - Past Surgical History Head Surgeries/Procedures: Reports: None HEENT Surgical History: Reports: None Cardiovascular Surgical History: Reports: Coronary Artery Stent Other Cardiovascular Surgeries/Procedures: one stent 10 years ago, no chest pain since Respiratory Surgical History: Reports: Lung Biopsies GI Surgical History: Reports: Appendectomy Male Surgical History: Reports: None Neurological Surgical History: Reports: None Musculoskeletal Surgical History: Reports: Amputation, Other (See Below) Other Musculoskeletal Surgeries/Procedures:: amputation of right middle finger, amputation of left small toe, excision of mass right axilla Social & Family History - Family History Family Medical History: Noncontributory - Tobacco Use Smoking Status *Q: Former Smoker Years of Tobacco use: 30 Packs/Tins Daily: 4 Used Tobacco, but Quit: Yes Month Tobacco Last Used: quit several years ago - Caffeine Use Caffeine Use: Reports: Coffee Caffeine Use Comment: 2-3cups/day - Alcohol Use Days Per Week of Alcohol Use: 0 - Recreational Drug Use Recreational Drug Use: No Drug Use in Last 12 Months: No ED ROS GENERAL - Review of Systems Review Of Systems: ROS reveals no pertinent complaints other than HPI. ED EXAM, GENERAL - Physical Exam Exam: See Below (See dictation) Course - Vital Signs Last Recorded V/S: Last Vital Signs Temp 37.1 C 02/27/17 19:11 Pulse 122 H 02/27/17 19:11 Resp 34 H 02/27/17 19:11 BP Pulse Ox 89 L 02/27/17 19:11 - Orders/Labs/Meds Orders: Active Orders 24 hr Category Date Time Status EKG 12 Lead [EKG Documentation Completion] [RC] STAT Care 02/27/17 19:08 Active EKG 12 Lead [EKG Documentation Completion] [RC] STAT Care 02/27/17 19:31 Active Chest 1V Frontal [CR] Stat Exams 02/27/17 19:16 Taken Chest 1V Frontal [CR] Stat Exams 02/27/17 20:01 Ordered CBC W/O DIFF,HEMOGRAM [HEME] Stat Lab 02/27/17 19:41 Received COMPREHENSIVE METABOLIC PN,CMP [CHEM] Stat Lab 02/27/17 19:41 Received Sodium Chloride 0.9% [Normal Saline] 1,000 ml Med 02/27/17 19:21 Active IV .Bolus Medication Orders Sodium Chloride (Normal Saline) 1,000 mls @ 999 mls/hr IV .Bolus ONE Stop: 02/27/17 20:21 Labs: Laboratory Tests 02/27/17 02/27/17 02/27/17 Range/Units 19:41 19:41 19:42 INR 0.98 (0.86-1.11) ABG pH 7.485 H (7.35-7.45) ABG pCO2 38 (35-45) mmHG ABG pO2 46 L (75-100) mmHG ABG HCO3 29 H (22-26) mEq/L ABG Total CO2 24.9 ABG Base Excess 5.1 H (-2.0-2.0) Troponin I < 0.10 (0.0-0.29) NG/ML Meds: Medications Generic Name Dose Route Start Last Admin Trade Name Freq PRN Reason Stop Dose Admin Sodium Chloride 1,000 mls @ 999 mls/hr 02/27/17 19:21 Normal Saline IV 02/27/17 20:21 .Bolus ONE Discontinued Medications Generic Name Dose Route Start Last Admin Trade Name Freq PRN Reason Stop Dose Admin Propofol Confirm 02/27/17 19:49 Diprivan 100 Ml Administered 02/27/17 19:50 Dose 100 mls @ as directed .ROUTE .STK-MED ONE Midazolam HCl Confirm 02/27/17 19:49 Versed 5 Mg/Ml Administered 02/27/17 19:50 Dose 5 mg .ROUTE .STK-MED ONE Departure - Departure Time of Disposition: 20:08 Disposition: DC/Tfer to Acute Hospital 02 Condition: Critical Clinical Impression: Respiratory failure, Metastatic lung cancer (metastasis from lung to other site ) - Discharge Information Referrals: Cecil Gross MD [Primary Care Provider] - Forms: ED Department Discharge - My Orders Last 24 Hours: My Active Orders 02/27/17 19:08 EKG 12 Lead [EKG Documentation Completion] [RC] STAT 02/27/17 20:01 Chest 1V Frontal [CR] Stat - Assessment/Plan Last 24 Hours: My Active Orders 02/27/17 19:08 EKG 12 Lead [EKG Documentation Completion] [RC] STAT 02/27/17 20:01 Chest 1V Frontal [CR] Stat
--- NOTE | 2017-02-27 19:32 | EDM.PDOC ---
ED HPI GENERAL MEDICAL PROBLEM - General Chief Complaint: Respiratory Problem Stated Complaint: SHORTNESS OF BREATH - Related Data Allergies Allergy/AdvReac Type Severity Reaction Status Date / Time No Known Allergies Allergy Verified 02/10/17 19:51 Home Meds: Home Meds Aspirin 81 mg PO DAILY 01/04/17 [History] Clopidogrel [Plavix] 75 mg PO DAILY 01/04/17 [History] Insulin Detemir [Levemir] 1 injection SQ BID 01/04/17 [History] Insulin Lispro [Humalog Kwikpen] 1 injection SQ ASDIRECTED 01/04/17 [History] Metoprolol Succinate 50 mg PO BID 01/04/17 [History] atorvaSTATin [Lipitor] 80 mg PO DAILY 01/04/17 [History] Furosemide 20 mg PO DAILY 01/30/17 [History] Ipratropium/Albuterol Sulfate [IJD: DuoNeb 3.0-0.5 MG/3 ML] 1 dose NEB ASDIRECTED PRN 01/30/17 [History] Lisinopril 10 mg PO DAILY 01/30/17 [History] Nystatin 5 ml GARGLE ASDIRECTED 01/30/17 [History] Omeprazole 20 mg PO DAILY 01/30/17 [History] guaiFENesin [Mucinex] 2 tab PO ASDIRECTED PRN 01/30/17 [History] levETIRAcetam [Levetiracetam] 750 mg PO BID 01/30/17 [History] traMADol HCl [Tramadol HCl] 50 mg PO ASDIRECTED PRN 01/30/17 [History] Albuterol [Proventil Neb Soln] 1 dose INH QID 01/31/17 [History] Benzonatate [Tessalon Perles] 100 mg PO TID 01/31/17 [History] Carvedilol 30,125 mg PO BIDMEALS 01/31/17 [History] Dexamethasone 4 mg PO Q6H 01/31/17 [History] Docusate Sodium/Sennosides [Senna Plus] 1 tab PO BID PRN 01/31/17 [History] Polyethylene Glycol 3350 [MiraLAX] 17 gm PO DAILY 01/31/17 [History] Past Medical History HEENT History: Reports: Sinusitis Other HEENT History: wears glasses, has upper denture Cardiovascular History: Reports: Arrhythmia, High Cholesterol, Hypertension, NC , SOB on Exertion, Other (See Below) Other Cardiovascular History: states the lung cancer is "wrapped around his heart" causing it to function at "40%" Respiratory History: Reports: Bronchitis, Recurrent, SOB, Other (See Below) Other Respiratory History: current lung cancer with brain mets Gastrointestinal History: Reports: None Genitourinary History: Reports: None Musculoskeletal History: Reports: Fracture, Neck Pain, Chronic Other Musculoskeletal History: hx of fx left foot multiple times Neurological History: Reports: CVA, Head Trauma, Other (See Below) Other Neuro History: CVA in 2014, no residual, currently has tremors left arm, hx of having his head "split open" (? soft tissue repair?) Psychiatric History: Reports: None Endocrine/Metabolic History: Reports: Diabetes, Type II, Obesity/BMI 30+ Hematologic History: Reports: Anticoagulation Therapy Immunologic History: Reports: None Oncologic (Cancer) History: Reports: Brain, Lung Dermatologic History: Reports: None - Infectious Disease History Infectious Disease History: Reports: Chicken Pox, Measles, Mumps - Past Surgical History Head Surgeries/Procedures: Reports: None HEENT Surgical History: Reports: None Cardiovascular Surgical History: Reports: Coronary Artery Stent Other Cardiovascular Surgeries/Procedures: one stent 10 years ago, no chest pain since Respiratory Surgical History: Reports: Lung Biopsies GI Surgical History: Reports: Appendectomy Male Surgical History: Reports: None Neurological Surgical History: Reports: None Musculoskeletal Surgical History: Reports: Amputation, Other (See Below) Other Musculoskeletal Surgeries/Procedures:: amputation of right middle finger, amputation of left small toe, excision of mass right axilla Social & Family History - Family History Family Medical History: Noncontributory - Tobacco Use Smoking Status *Q: Former Smoker Years of Tobacco use: 30 Packs/Tins Daily: 4 Used Tobacco, but Quit: Yes Month Tobacco Last Used: 3 years ago - Caffeine Use Caffeine Use: Reports: Coffee Caffeine Use Comment: 2-3cups/day - Alcohol Use Days Per Week of Alcohol Use: 0 - Recreational Drug Use Recreational Drug Use: No Drug Use in Last 12 Months: No Course - Vital Signs Last Recorded V/S: Last Vital Signs Temp 37.1 C 02/27/17 19:11 Pulse 122 H 02/27/17 19:11 Resp 34 H 02/27/17 19:11 BP Pulse Ox 89 L 02/27/17 19:11 - Orders/Labs/Meds Orders: Active Orders 24 hr Category Date Time Status EKG 12 Lead [EKG Documentation Completion] [RC] STAT Care 02/27/17 19:08 Active Departure - Discharge Information Referrals: Cecil Gross MD [Primary Care Provider] -
[2017-02-27] MEDS ORDERED: Midazolam 5 MG/ML SDV ONE (19:49)
[2017-02-27 20:09] LABS: CHLORIDE,CL 97 mmol/L (98-110); SODIUM,NA 135 mmol/L (136-146)
--- NOTE | 2017-02-27 20:37 | PCM.SN ---
- Free Text/Narrative Note: Anesthesia Note: Called for intubation. Arrive to pt on NC @ 5L with sat's in the mid 80's and pt visibly working hard to breathe. Pt states he feels mildly better, but still requests to be intubated and transferred to [place]. Dr. Hand in agreement. Pt denies any allergies. PMH includes heart stents placed approximately 10 years ago, a stroke 4 yrs ago and recent diagnosis of lung cancer with mets to the brain approximately 3 weeks ago. Pt states he has no problems with anesthesia that he knows of. Last PO intake at 1600. EKG shows ST with BBB with rate in the 120's. No upper dentition in place and moderate limited ROM in neck extension. BP prior to intubation - 102/75, HR 115, Sats 90% 1954: Pt preoxygenated with 100% O2 per bag/mask with 2mg Versed. Sat's reach their highest at 90%. Meds: 24mg Etomidate, 10mg Rocuronium and 140mg Succs. RSI with CP held. DL x1 Grade I. 8.0 ETT placed atraumatically. +etCO2, +BBS. Additional 3mg Versed and 40 mg Rocuronium given IV. Vent attached per RT. Settings: PRVC R:16 TV:500 P:5 O2:100% Tube initially secured at 24cm at the lip , then pulled back to 23 cm after xray. BP after intubation - 109/69, HR 128, Sats 95% Propofol gtt started at 10mcg/kg/min initially, as BP tolerated this was turned up to 20mcg/kg/min, then back to 15 mcg/kg/min and peep also decreased to 3 for BP 97/64 - subsequent BP's>100 systolic. Flight team here and takes over management to transport - report given. Pt stable at this time and family with him at bedside.
[2017-02-28 04:33] VITALS: BP 93/53
--- NOTE | 2017-02-28 13:34 | CR ---
EXAM DATE: 02/27/17 PATIENT'S AGE: 61 Patient: DEV CAZARES Facility: [place], [place] Site . Site : 1955 Study: XRay Chest [id number]/19/2017 7:53:01 PM Ordering Physician: Yazan Aviles Final Report: HISTORY: Dyspnea. Technique: Portable frontal view of the chest. Comparison: Chest x-ray 02/05/2017. Findings: Right-sided port is unchanged. Right basilar atelectasis. No airspace consolidation. No pleural effusion or pneumothorax. Cardiomediastinal silhouette is unchanged. Impression: No acute findings. Dictated by Chuck Teresa MD @ Feb 27 2017 8:34PM (Electronic Signature) Report Signed by Proxy. [facility] HOSPITALDarlene
--- NOTE | 2017-02-28 13:35 | CR ---
EXAM DATE: 02/27/17 PATIENT'S AGE: 61 Patient: DEV CAZARES Facility: [place], [place] Site . Site : 1955 Study: XRay Chest [id number]/19/2017 8:19:31 PM Ordering Physician: Yazan Aviles Final Report: HISTORY: Post intubation. Technique: Portable frontal view the chest. Comparison: Chest x-ray 02/27/2017 at 19:40 6 hours. Findings: New endotracheal tube with tip 5 cm above the heron. Right-sided port is unchanged. Right basilar atelectasis. No airspace consolidation. No pleural effusion or pneumothorax. Cardiomediastinal silhouette is unchanged. Impression: New endotracheal tube with tip 5 cm above the heron. No other change. Dictated by Chuck Teresa MD @ Feb 27 2017 8:36PM (Electronic Signature) Report Signed by Proxy. MAG[facility]
== END 2017-02-27 21:12 ==
LOC: MW.ED 19:06
DX: J96.90 Respiratory failure, unspecified, unspecified whether with hypoxia or hypercapnia (principal); C34.90 Malignant neoplasm of unspecified part of unspecified bronchus or lung; C79.31 Secondary malignant neoplasm of brain; I10 Essential (primary) hypertension; I25.2 Old myocardial infarction; E78.00 Pure hypercholesterolemia, unspecified; E11.9 Type 2 diabetes mellitus without complications; E66.9 Obesity, unspecified; Z79.01 Long term (current) use of anticoagulants; Z89.021 Acquired absence of right finger(s); Z89.422 Acquired absence of other left toe(s); Z98.890 Other specified postprocedural states; Z87.891 Personal history of nicotine dependence; Z79.02 Long term (current) use of antithrombotics/antiplatelets; Z79.82 Long term (current) use of aspirin; Z79.899 Other long term (current) drug therapy; Z79.4 Long term (current) use of insulin; Z68.34 Body mass index [BMI] 34.0-34.9, adult; Z86.73 Personal history of transient ischemic attack (TIA), and cerebral infarction without residual deficits; Z95.5 Presence of coronary angioplasty implant and graft; Z90.49 Acquired absence of other specified parts of digestive tract
CPT/HCPCS: 31500; 36415; 36600; 71010; 80053; 82803; 84484; 85027; 85610; 93005; 96360; 99285; J7040; 99284